=== PATIENT | male | born 1940 | race Caucasian/White ===

== ENCOUNTER 2017-02-14 11:15 | Emergency (ER) | payer OTHER ==
[~2017-02-14] VITALS: Ht 188 cm; Wt 108.9 kg
[2017-02-14 11:16] VITALS: BP 136/76; PULSE 70; RESP 16; TEMP 95.9; O2SAT 95
[2017-02-14] MEDS ORDERED: DIPH-TET-PERTUS Vaccine 0.5 ML VIAL (ADACEL) I.M. ONE (11:30)
[2017-02-14] MEDS ORDERED: BACITRACIN 1 GM OINT TP ONE (12:43)
[2017-02-14 13:23] VITALS: BP 130/72; PULSE 69; RESP 17; TEMP 97; O2SAT 97
== END 2017-02-14 13:23 | disposition home or self-care (01) ==
LOC: SED 11:15
DX: S61.511A Laceration without foreign body of right wrist, initial encounter (principal); S16.1XXA Strain of muscle, fascia and tendon at neck level, initial encounter; S43.401A Unspecified sprain of right shoulder joint, initial encounter; V43.52XA Car driver injured in collision with other type car in traffic accident, initial encounter; Y93.89 Activity, other specified; Y92.488 Other paved roadways as the place of occurrence of the external cause; Y99.8 Other external cause status
CPT/HCPCS: 72125-TC; 90715; 99284